=== PATIENT | female | born 1995 | race Caucasian/White ===

== ENCOUNTER 2017-12-24 11:25 | Outpatient (CLI) | payer OTHER | END 2017-12-24 11:26 | disposition home or self-care (01) | LOC: LAB.F 11:25 | PROVIDERS: ATTEND Registered Nurse | DX: L65.0 Telogen effluvium (principal) | CPT/HCPCS: 36415; 84443 ==

== ENCOUNTER 2018-09-09 09:58 | Day surgery (SDC) | payer OTHER ==
--- NOTE | 2018-09-09 09:47 | ANESTHESIA ---
Pre-Anesthesia VS, & Labs - Diagnosis Left ankle ganglion cyst - Procedure Excise left ankle ganglion cyst - NPO >8 hours - Is Patient ?: No Home Medications and Allergies Home Medications: Ambulatory Orders Albuterol Sulf [Ventolin Hfa Inhaler] 2 puffs INH Q4HR PRN 09/02/18 Buspirone HCl 15 mg PO DAILY 09/02/18 Calcium Carbonate/Vitamin D3 [Calcium 600 + Vit D 400 Tablet] 1 each PO DAILY 09/02/18 EPINEPHrine [Epinephrine] 1 applic IJ ONCE PRN 09/02/18 Fluticasone Propionate [Flovent Hfa] 2 puffs IH BID PRN 09/02/18 Fluticasone [Flonase] 2 sprays MARIA T DAILY 09/02/18 Levonorgestrel-Ethin Estradiol [Marlissa-28 Tablet] 1 each PO DAILY 09/02/18 Loratadine [Allergy] 10 mg PO DAILY 09/02/18 Sertraline HCl 100 mg PO DAILY 09/02/18 Albuterol Sulf [Ventolin Hfa Inhaler] 2 puffs INH Q4HR PRN 09/02/18 Buspirone HCl 15 mg PO DAILY 09/02/18 Calcium Carbonate/Vitamin D3 [Calcium 600 + Vit D 400 Tablet] 1 each PO DAILY 09/02/18 EPINEPHrine [Epinephrine] 1 applic IJ ONCE PRN 09/02/18 Fluticasone Propionate [Flovent Hfa] 2 puffs IH BID PRN 09/02/18 Fluticasone [Flonase] 2 sprays MARIA T DAILY 09/02/18 Levonorgestrel-Ethin Estradiol [Marlissa-28 Tablet] 1 each PO DAILY 09/02/18 Loratadine [Allergy] 10 mg PO DAILY 09/02/18 Sertraline HCl 100 mg PO DAILY 09/02/18 Allergies/Adverse Reactions: Allergies Allergy/AdvReac Type Severity Reaction Status Date / Time legumes Allergy Anaphylaxis Verified 09/02/18 14:39 nickel Allergy Rash Verified 09/02/18 14:39 peanut Allergy Anaphylaxis Verified 09/02/18 14:39 silver Allergy Rash Verified 09/02/18 14:39 soy Allergy Anaphylaxis Verified 09/02/18 14:39 tree nut Allergy Anaphylaxis Verified 09/02/18 14:39 Anes History & Medical History - Anesthetic History Anesthesia Complications: reports: No previous complications Family history of Anesthesia Complications: Denies Family history of Malignant Hyperthermia: Denies - Medical History Cardiovascular: reports: None Pulmonary: reports: Asthma Gastrointestinal: reports: None Urinary: reports: None Neuro: reports: None Musculoskeletal: reports: None Endocrine/Autoimmune: reports: None Skin: reports: None Smoking Status: Never smoker Psychosocial: reports: No issues indicated Exam General: Alert, Oriented x3, Cooperative Dental: WNL Mouth Opening: Greater than 4 Fingerbreadths Neck Mobility: Normal Mallampati classification: I Thyromental Distance: greater than 6 cm Respiratory: Lungs clear Cardiovascular: Regular rate Neurological: Normal speech Mental/Cognitive Status: Alert/Oriented X3 Cognitive Status: Within normal limits Plan Anesthesia Type: General Consent for Procedure(s) Verified and Reviewed: Yes Code Status: Attempt Resuscitation ASA classification: 1-Healthy patient Is this case an emergency?: No
[~2018-09-09 09:58] MED LIST: CEFAZOLIN SODIUM IN 0.9 % NACL 2 GM/100 ML BAG IV ONE
[2018-09-09 10:18] LABS: HCG UR QUAL NEGATIVE
[2018-09-09] MEDS ORDERED: LACTATED RINGERS 1,000 ML IV ONE (10:23)
[2018-09-09] MEDS ORDERED: LIDOCAINE 1%-EPI 1:100000 20 ML MDV ONE (10:42)
[2018-09-09] MEDS ORDERED: LIDOCAINE 1% 50 ML MDV ONE (10:43)
[2018-09-09] MEDS ORDERED: BUPIVACAINE 0.25% PF 30 ML VIAL SUBQ ONE (11:34)
[2018-09-09] MEDS ORDERED: LIDOCAINE 1%-EPI 1:100000 20 ML MDV SUBQ ONE (11:34)
[2018-09-09] MEDS ORDERED: DEXAMETHASONE 4 MG/ML VIAL IVP ONE (11:40)
[2018-09-09] MEDS ORDERED: KETOROLAC 30 MG/ML VIAL IVP ONE (11:40)
[2018-09-09] MEDS ORDERED: MIDAZOLAM 2 MG/2 ML VIAL IVP ONE (11:40)
[2018-09-09] MEDS ORDERED: ONDANSETRON 4 MG/2 ML VIAL IVP ONE (11:40)
[2018-09-09] MEDS ORDERED: PROPOFOL 200 MG/20 ML VIAL IVP ONE (11:40)
[2018-09-09] MEDS ORDERED: LIDOCAINE-MPF 2% 5 ML VIAL IV ONE (11:40)
[2018-09-09] MEDS ORDERED: ONDANSETRON 4 MG/2 ML VIAL IVP PRN (11:47)
[2018-09-09] MEDS ORDERED: HYDROcod/ACETAM 5/325 MG TABLET PO PRN (11:47)
[2018-09-09 13:23] VITALS: BP 112/71
--- NOTE | 2018-09-09 14:21 | OPERATIVE REPORT ---
DATE OF SERVICE: 09/09/2018 Physician: Marilin Hart MD PREOPERATIVE DIAGNOSIS: Left anteromedial ankle ganglion cyst. POSTOPERATIVE DIAGNOSIS: Left anteromedial ankle ganglion cyst. PROCEDURE PERFORMED: Excision of left ankle ganglion cyst. SURGEON: Marilin Hart MD ANESTHESIA: General, Willie Estrada INDICATIONS FOR SURGERY: Patient is a 23-year-old who has had a recurrent formation of a ganglion cy st in the anteromedial ankle with prior aspiration and injection being effective for a short time and then having recurrence and reformation of the cyst. It causes a vague aching and prominence on the front of the ankle. She has been recommended cyst excision as this has become quite bothersome to he r. FINDINGS AT SURGERY: Patient's cyst on presentation had diminished in size from the office visit. N evertheless, at open surgery, there was a large decompressed cavity in the anteromedial ankle with ex tension into the ankle joint. There was a small amount of residual steroid residue in the area of th e cyst. The exposure of the anteromedial ankle through arthrotomy showed a normal ankle joint. DESCRIPTION OF OPERATIVE PROCEDURE: The patient was taken to the operating room, given a general ane sthetic in the supine position. A tourniquet was placed on her thigh. Her foot and ankle were steri leeann prepped and draped in standard fashion. The patient's cyst approach was marked with a pen. Osorio gical timeout was held. The tourniquet was then inflated and the approach was made with a small ante romedial incision approximately 2 inches in length, directly over the area of the cyst. Careful diss ection was made down to the area of the cyst reflecting small sensory branches of superficial peronea l nerve and retracting on the lateral aspect, the tendon of the tibialis anterior. The cyst cavity w as identified and excised. This included excising a small window of the anterior capsule and essenti ally performing an arthrotomy into the ankle joint, which was inspected. At the conclusion, the area was flushed and irrigated and tourniquet was deflated with minimal bleeding. Closure was with inter rupted 3-0 Vicryl subcutaneous and 4-0 Monocryl closure of skin. Infiltration was performed into the ankle and wound with 0.25% Marcaine with epinephrine and lidocaine. Sterile dressings and a sugar-t shobha splint were applied and the patient was taken to recovery room in stable condition. ESTIMATED BLOOD LOSS: Minimal. COMPLICATIONS: None. SPONGE AND NEEDLE COUNTS: Correct. TD: 09/09/2018 12:02
== END 2018-09-09 09:59 | disposition home or self-care (01) ==
LOC: SDS 09:58
PROVIDERS: ATTEND Orthopaedic Surgery
PROC: 0SBG0ZZ Excision of Left Ankle Joint, Open Approach (ICD-10-PCS; principal; 2018-09-09 11:30)
DX: M67.472 Ganglion, left ankle and foot (principal); J45.909 Unspecified asthma, uncomplicated; Z79.899 Other long term (current) drug therapy; Z79.51 Long term (current) use of inhaled steroids
CPT/HCPCS: 27630; 81025; J0690; J7120

== ENCOUNTER 2018-12-10 14:32 | Outpatient (CLI) | payer OTHER ==
--- NOTE | 2018-12-11 16:14 | Ultrasound Report ---
Reason: INTRAUTERINE CONTRACEPTIVE DEVICE SERVEILLANCE Procedure Date: 12/10/2018 Accession Number: [id number] / [id number] Procedure: US - Pelvic w/Transvaginal CPT Code: FULL RESULT: EXAM: PELVIC ULTRASOUND EXAM DATE: 12/10/2018 03:30 PM. CLINICAL HISTORY: IUD placement surveillance. COMPARISON: None. TECHNIQUE: Realtime transabdominal pelvic scan performed to identify the uterus and adnexa and as an overview of other pelvic structures, followed by transvaginal scan to provide greater detail of the uterus and adnexa, with static image documentation. FINDINGS: Uterus: 6.9 x 2.2 x 3.2 cm, volume 25 cc. Anteverted position. Normal overall size and echotexture. Masses: None. Endometrium: 2 mm. The IUD is visualized in satisfactory position in the distal endometrial canal. No masses or thickening. Cervix: Unremarkable. Right Ovary: 3.6 x 1.9 x 3.7 cm, volume 13 cc. Normal echotexture and blood flow. Left Ovary: 3.5 x 2.1 x 3.3 cm, volume 12 cc. Normal echotexture and blood flow. Free Fluid: None. Other: None. IMPRESSION: 1. IUD in satisfactory position. 2. Otherwise unremarkable pelvic ultrasound. [facility]
== END 2018-12-10 14:33 | disposition home or self-care (01) ==
LOC: DI 14:32
PROVIDERS: ATTEND Nurse Practitioner Obstetrics & Gynecology
DX: Z30.431 Encounter for routine checking of intrauterine contraceptive device (principal)
CPT/HCPCS: 76830; 76856

== ENCOUNTER 2020-07-12 16:47 | Outpatient (CLI) | payer OTHER ==
[2020-07-12 17:43] LABS: CHOL/HDL RATIO 3.2 (<4.4); CHOLESTEROL 159 mg/dL; HDL CHOLESTEROL 50 mg/dL; LDL CHOLESTEROL,CALCULATED 73 mg/dL; LDL/HDL RATIO 1.5 (<4.4); TRIGLYCERIDES 182 mg/dL; VLDL CHOLESTEROL 36 mg/dL
[2020-07-12 17:55] LABS: THYROID STIMULATING HORMONE 1.31 uIU/mL (0.34-5.60)
[2020-07-13 09:57] LABS: HEPATITIS B SURFACE ANTIGEN NON-REACTIVE (NON-REACTIVE); HIV AG/AB 4TH GEN NON-REACTIVE (NON-REACTIVE)
== END 2020-07-12 16:48 | disposition home or self-care (01) ==
LOC: LAB 16:47
PROVIDERS: ATTEND Obstetrics & Gynecology
DX: F41.8 Other specified anxiety disorders (principal); Z13.220 Encounter for screening for lipoid disorders; Z11.3 Encounter for screening for infections with a predominantly sexual mode of transmission
CPT/HCPCS: 36415; 80061; 82306; 83721; 84443; 86592; 87340; 87389